=== PATIENT | male | born 1945 | race Caucasian/White ===

== ENCOUNTER 2020-03-02 09:00 | Outpatient (RCR) | payer MEDICARE, SELFPAY ==
--- NOTE | 2020-01-11 17:17 | STOPEVAL ---
Addendum entered by KAYCEE Jeffery 01/11/20 17:20: disregard; filed in error Original Note: Thank you for referring this patient to [facility] [place][Note 2]. The Please review, sign, date and return this plan of care NILS. I agree with and certify that the following plan of care is medically necessary. Referring Physician Date Admitting Provider: Attending Provider: NAHED MERIDA M.D. Referring Provider: [facility] Outpatient Evaluation Start: 01/10/20 12:54 Freq: Status: Active Protocol: Document 01/10/20 12:54 BRIGIDRT (Rec: 01/10/20 13:25 BECHERERT [email or web address]) Therapy Assessment Status Assessment Status Assessment Status Evaluation Outpatient Past Medical History Neurological History Hx Neurological Disorders No Significant History Cardiovascular History Hx Cardiac Disorders No Significant History Respiratory History Hx Chronic Obstructive Pulmonary Disease Yes (COPD) Gastrointestinal History Hx Gastrointestinal Disorders No Significant History HEENT History Hx Cataracts Yes: surgery Other History 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; 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 Prior Level of Function Activity Level (Last 3 Months) Activity of Daily Living Ability Independent Indoor/Home Mobility Independent Community Mobility Independent Stairs Ability Independent Functional Cognition (Planning, Shopping Independent , Taking Medications) Cooking Yes Cleaning Yes Laundry Yes Shopping Yes Driving Yes Home Setting Living Situation Alone Prior Swallow Level Prior Intake Method Oral Prior Diet Regular (Level 7 Diet) Prior Liquid Consistency Thin (Level 0 Diet) Prior Cognition/Communication Prior Communication Level No Impairment Prior Cognitive Function Able to Function Independently Prior Ability to Handle Finances Independent Comments Additional Prior Level of Function Pt is exhibiting difficulty Comments with speech due to laryngectomy; he has an electrolarynx but c/o that he is not effective with it and cannot talk on the phone. He communicates with his daughter via texting. Pain Assessment Timing of Pain Assessment Timing of Pain Assessment Assessment Self Report Self Report Pain Level 0 Pain Scale Pain Scale Used Numeric (1 - 10) Pain Score Pain Score 0: Self Report Voice Evaluation
--- NOTE | 2020-01-11 17:17 | STOPEVAL ---
Thank you for referring this patient to [facility]. The pt was seen by speech therapy for an evaluation of the use of his electro larynx. Pt would benefit from outpatient speech therapy x2 week 4 to improve vocal quality, articulatory precision, rate of speech & pausing, & proper device placement. Please review, sign, date and return this plan of care NILS. I agree with and certify that the following plan of care is medically necessary. Referring Physician Date Admitting Provider: Attending Provider: NAHED MERIDA M.D. Referring Provider: [facility] Outpatient Evaluation Start: 01/10/20 12:54 Freq: Status: Active Protocol: Document 01/10/20 12:54 BRIGID (Rec: 01/10/20 13:25 BECHERERT [email or web address]) Therapy Assessment Status Assessment Status Assessment Status Evaluation Outpatient Past Medical History Neurological History Hx Neurological Disorders No Significant History Cardiovascular History Hx Cardiac Disorders No Significant History Respiratory History Hx Chronic Obstructive Pulmonary Disease Yes (COPD) Gastrointestinal History Hx Gastrointestinal Disorders No Significant History HEENT History Hx Cataracts Yes: surgery Other History 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; 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 Prior Level of Function Activity Level (Last 3 Months) Activity of Daily Living Ability Independent Indoor/Home Mobility Independent Community Mobility Independent Stairs Ability Independent Functional Cognition (Planning, Shopping Independent , Taking Medications) Cooking Yes Cleaning Yes Laundry Yes Shopping Yes Driving Yes Home Setting Living Situation Alone Prior Swallow Level Prior Intake Method Oral Prior Diet Regular (Level 7 Diet) Prior Liquid Consistency Thin (Level 0 Diet) Prior Cognition/Communication Prior Communication Level No Impairment Prior Cognitive Function Able to Function Independently Prior Ability to Handle Finances Independent Comments Additional Prior Level of Function Pt is exhibiting difficulty Comments with speech due to laryngectomy; he has an electro larynx but c/o that he is not effective with it and cannot talk on the phone. He communicates with his daughter via texting. Pain Assessment Timing of Pain Assessment Timing of Pain Assessment Assessment Self Report Self Report Pain Level 0 Pain Scale Pain Scale Used
--- NOTE | 2020-02-03 08:38 | STOPEVAL ---
SPEECH THERAPY PROGRESS NOTE: Thank you for referring this patient to [facility]. Pt. has completed 8 speech therapy sessions to improve communication skills using the electro larynx. Since pt has exhibited improvement, further treatment is recommended x2 week 4. Please review, sign, date and return this plan of care NILS. I agree with and certify that the following plan of care is medically necessary. Referring Physician Date Admitting Provider: Attending Provider: NAHED MERIDA M.D. Referring Provider: [facility] Outpatient RE Evaluation Start: 01/10/20 12:54 Freq: Status: Active Protocol: Document 02/02/20 17:44 BECHERERT (Rec: 02/02/20 17:48 BECHERERT [email or web address]) Therapy Assessment Status Assessment Status Assessment Status Re-evaluation Outpatient Past Medical History Neurological History Hx Neurological Disorders No Significant History Cardiovascular History Hx Cardiac Disorders No Significant History Respiratory History Hx Chronic Obstructive Pulmonary Disease Yes (COPD) Gastrointestinal History Hx Gastrointestinal Disorders No Significant History HEENT History Hx Cataracts Yes: surgery Other History 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 single word response to questions: 90% accuracy phrase response to questions: ~ 80% accuracy Conversational speech: ~ 80% accuracy Speech Therapy Teaching Adult Speech Therapy Teaching Swallowing/Communication Education Topic Voice Home Program Topic Structured Tasks As Pertains to Compensatory Strategies, Intervention Options,Test Results Recipient(s) of Teaching Patient Learning Preferences Discussion,One-on-One Instruction Barriers to Learning None Readines
--- NOTE | 2020-03-02 10:36 | STOPEVAL ---
SPEECH THERAPY DISCHARGE: Thank you for referring aZki Lee to [facility]. Pt has completed 16 sessions which has focused on improving effective use of electro larynx which included clarity of speech, synchrony in manipulating the on/off control, proper placement, & rate of speech. Pt exhibited improved in all areas. Please review, sign, date and return this plan of care NILS. I agree with and certify that the following plan of care is medically necessary. Referring Physician Date Admitting Provider: Attending Provider: NAHED MERIDA M.D. Referring Provider: [facility] Outpatient Evaluation Start: 01/10/20 12:54 Freq: Status: Active Protocol: Document 03/02/20 09:46 MASOOD (Rec: 03/02/20 10:36 MASOOD [email or web address]) Therapy Assessment Status Assessment Status Assessment Status Discharge Outpatient Past Medical History Neurological History Hx Neurological Disorders No Significant History Cardiovascular History Hx Cardiac Disorders No Significant History Respiratory History Hx Chronic Obstructive Pulmonary Disease Yes (COPD) Gastrointestinal History Hx Gastrointestinal Disorders No Significant History HEENT History Hx Cataracts Yes: surgery Other History 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; 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 Pain Assessment Timing of Pain Assessment Timing of Pain Assessment Assessment Self Report Self Report Pain Level 0 Pain Scale Pain Scale Used Numeric (1 - 10) Pain Score Pain Score 0: Self Report Speech Therapy Teaching Adult Speech Therapy Teaching Swallowing/Communication Education Topic Voice Home Program Topic Structured Tasks As Pertains to Compensatory Strategies Recipient(s) of Teaching Patient Learning Preferences Demonstration,Discussion,One- on-One Instruction Barriers to Learning None Readiness to Learn Excellent Teaching Method(s) Demonstration,Discussion,One- On-One Instruction Response(s) to Teaching Returns Demonstration, Verbalizes Understanding Teaching Comments Pt reports increased use of electro larynx as he is gaining confidence due to being better understood. Pt reports that use of the electro larynx continues to be impacted by surrounding noise and social distancing. He reports further increased use and listener understanding in qu
== END 2020-03-03 09:27 | disposition home or self-care (01) ==
LOC: ANHST 09:00
PROVIDERS: PCP Internal Medicine; Visit Provider Otolaryngology
DX: F80.89 Other developmental disorders of speech and language (principal); Z90.02 Acquired absence of larynx
CPT/HCPCS: 92507; 92597